=== PATIENT | male | born 1945 | race Caucasian/White ===

== ENCOUNTER 2021-02-02 18:32 | Inpatient (IN) ==
[2021-02-02] MEDS ORDERED: 0.9 % Sodium Chloride 500 ML IVC STA (20:00)
[2021-02-02 20:32] LABS: Basophils % 0.4 %; Eosinophils # 0.1 K/mcL (0.0-0.6); Hematocrit 36.3 % (37.5-50.1); Hemoglobin 11.3 g/dL (12.9-16.9); Immature Granulocytes % 0.5 % (0-4); Mean Corpuscular HGB Conc 31.1 g/dL (31.6-35.5); Mean Corpuscular Hemoglobin 28.5 pg (28.0-33.3); Mean Corpuscular Volume 91.7 fL (83.0-100.0); Mean Platelet Volume 10.4 fL (9.4-12.4); Monocytes # 0.6 K/mcL (0.0-1.3); Monocytes % 5.2 %; Platelet Count 147 K/mcL (140-400); Red Blood Count 3.96 M/mcL (4.19-5.50); Red Cell Distribution Width 13.7 % (11.5-14.5); Segmented Neutrophils % 83.9 %; White Blood Count 10.7 K/mcL (4.3-11.1)
[2021-02-02 20:53] LABS: Alanine Aminotransferase 10 Units/L (7-52); Albumin/Globulin Ratio 1.3 (1.1-2.2); Alkaline Phosphatase 74 Units/L (34-104); Aspartate Amino Transferase 16 Units/L (13-39); BUN/Creatinine Ratio 11 (6-26); Bilirubin,Total 0.4 mg/dL (0.3-1.0); Blood Urea Nitrogen 15 mg/dL (8-23); Calcium 8.4 mg/dL (8.6-10.3); Carbon Dioxide 26 mEq/L (23-29); Chloride 109 mEq/L (98-107); Creatine Kinase 146 Units/L (30-223); Glucose 96 mg/dL (70-105); Osmolality,Calculated 287 (280-300); Potassium 4.6 mEq/L (3.5-5.1); Sodium 138 mEq/L (136-145); eGFR For African Americans > 60 (> 60); eGFR For Non-African Americans 50 (> 60)
[2021-02-02 20:54] LABS: Troponin I < 0.03 ng/mL (< 0.04)
[2021-02-02 20:58] LABS: Acetaminophen < 10 mcg/mL (10-20); Chol/HDL Ratio 2.2 (0-4.9); Cholesterol 119 mg/dL (< 200); HDL Cholesterol 54 mg/dL (40-59); LDL Cholesterol,Calculated 57 mg/dL (< 100); Salicylate < 2.5 mg/dL (15.0-30.0); Triglycerides 39 mg/dL (< 150)
[2021-02-02] MEDS ORDERED: lamoTRIgine 100 MG TABLET PO SCH (21:00)
[2021-02-02 21:13] LABS: Ethanol < 10 mg/dL (Less than 10)
[2021-02-02 21:22] LABS: Bilirubin,Urine Negative (Negative); Blood,Urine Negative (Negative); Clarity,Urine Clear (Clear); Color,Urine Light-Yellow (Yellow); Glucose,Urine (UA) Normal (Normal); Ketones,Urine Negative (Negative); Leukocyte Esterase,Urine Negative (Negative); Nitrite,Urine Negative (Negative); Protein,Urine Trace mg/dL (Neg-Trace); Specific Gravity,Urine 1.016 (1.010-1.025); Urobilinogen,Urine Normal (Normal)
[2021-02-02 21:29] LABS: Amphetamine Screen,Urine Negative ng/mL (Cutoff=1000); Barbiturate Screen,Urine Negative ng/mL (Cutoff=200); Benzodiazepines Screen,Urine Negative ng/mL (Cutoff=200); Cannabinoid Screen,Urine Negative ng/mL (Cutoff = 50); Cocaine Screen,Urine Negative ng/mL (Cutoff= 300); Opiate Screen,Urine Negative ng/mL (Cutoff=300); Phencyclidine Screen,Urine Negative ng/mL (Cutoff=25)
[2021-02-02] MEDS ORDERED: Morphine Sulfate 2 MG/ML SYRINGE IVP STA (21:42)
[2021-02-02 22:43] LABS: Adenovirus Not Detected (Not Detect); Bordetella Pertussis Not Detected (Not Detect); Chlamydophila pneumoniae Not Detected (Not Detect); Coronavirus 229E Not Detected (Not Detect); Coronavirus HKU1 Not Detected (Not Detect); Coronavirus NL63 Not Detected (Not Detect); Coronavirus OC43 Not Detected (Not Detect); Human Metapneumovirus Not Detected (Not Detect); Human Rhinovirus/Enterovirus Not Detected (Not Detect); Influenza A Subtype 2009 H1 Not Detected (Not Detect); Influenza B Not Detected (Not Detect); Mycoplasma pneumoniae Not Detected (Not Detect); Parainfluenza Virus 1 Not Detected (Not Detect); Parainfluenza Virus 2 Not Detected (Not Detect); Parainfluenza Virus 3 Not Detected (Not Detect); Parainfluenza Virus 4 Not Detected (Not Detect); Respiratory Syncytial Virus Not Detected (Not Detect); SARS-CoV-2 Not Detected (Not Detect)
[2021-02-02 23:12] LABS: Estimated Average Glucose 117 mg/dl; Hemoglobin A1C 5.7 %
[2021-02-03] MEDS ORDERED: Ondansetron 4 MG/2 ML VIAL IVP PRN (01:19)
[2021-02-03] MEDS ORDERED: *HR* Promethazine 25 MG/ML VIAL IM PRN (01:19)
[2021-02-03] MEDS ORDERED: Naloxone 0.4 MG/ML INJ IVP PRN (01:19)
[2021-02-03] MEDS ORDERED: clonazePAM 0.5 MG TABLET PO PRN (01:23)
[2021-02-03] MEDS ORDERED: *HR* Labetalol 20 MG/4 ML SYRINGE IVP ONE (05:07)
[2021-02-03 05:56] LABS: BUN/Creatinine Ratio 11 (6-26); Blood Urea Nitrogen 14 mg/dL (8-23); Carbon Dioxide 24 mEq/L (23-29); Chloride 109 mEq/L (98-107); Glucose 98 mg/dL (70-105); Osmolality,Calculated 290 (280-300); Potassium 4.1 mEq/L (3.5-5.1); Sodium 140 mEq/L (136-145); eGFR For African Americans > 60 (> 60); eGFR For Non-African Americans 55 (> 60)
[2021-02-03] MEDS: Acetaminophen 325 MG TABLET PO PRN (07:21)
[2021-02-03] MEDS ORDERED: amLODIPine 5 MG TABLET PO SCH (09:00)
[2021-02-03] MEDS ORDERED: lamoTRIgine 100 MG TABLET PO SCH ×2 (09:00→21:00)
[2021-02-03] MEDS: lisinopriL 20 MG TABLET PO SCH ×2 (13:28→13:56)
[2021-02-03] MEDS: clonazePAM 0.5 MG TABLET PO SCH (20:47)
[2021-02-03] MEDS: Mirtazapine 15 MG TABLET PO SCH (20:47)
[2021-02-03] MEDS: lamoTRIgine 100 MG TABLET PO SCH (20:47)
[2021-02-04] MEDS: clonazePAM 0.5 MG TABLET PO SCH ×2 (07:45→19:51)
[2021-02-04] MEDS: lamoTRIgine 100 MG TABLET PO SCH ×2 (07:45→19:51)
[2021-02-04] MEDS ORDERED: lamoTRIgine 25 MG TABLET PO ONE (10:35)
[2021-02-04] MEDS: Acetaminophen 325 MG TABLET PO PRN ×2 (11:19→17:35)
[2021-02-04] MEDS: lisinopriL 20 MG TABLET PO SCH (19:50)
[2021-02-04] MEDS: OXcarbazepine 150 MG TABLET PO SCH (19:51)
[2021-02-04] MEDS: Mirtazapine 15 MG TABLET PO SCH (19:51)
[2021-02-04] MEDS ORDERED: lamoTRIgine 100 MG TABLET PO SCH (21:00)
[2021-02-04] MEDS ORDERED: lamoTRIgine 25 MG TABLET PO SCH (21:00)
[2021-02-05 07:38] LABS: Basophils % 0.4 %; Eosinophils # 0.4 K/mcL (0.0-0.6); Eosinophils % 6.4 %; Hematocrit 35.2 % (37.5-50.1); Immature Granulocytes % 0.4 % (0-4); Lymphocytes # 1.5 K/mcL (0.6-4.6); Lymphocytes % 27.3 %; Mean Corpuscular HGB Conc 31.3 g/dL (31.6-35.5); Mean Corpuscular Hemoglobin 28.8 pg (28.0-33.3); Mean Corpuscular Volume 92.1 fL (83.0-100.0); Mean Platelet Volume 10.7 fL (9.4-12.4); Monocytes # 0.5 K/mcL (0.0-1.3); Neutrophils # 3.1 K/mcL (1.6-8.9); Platelet Count 120 K/mcL (140-400); Red Blood Count 3.82 M/mcL (4.19-5.50); Red Cell Distribution Width 13.8 % (11.5-14.5); Segmented Neutrophils % 56.5 %; White Blood Count 5.5 K/mcL (4.3-11.1)
[2021-02-05 07:57] LABS: BUN/Creatinine Ratio 14 (6-26); Blood Urea Nitrogen 20 mg/dL (8-23); Calcium 8.9 mg/dL (8.6-10.3); Carbon Dioxide 27 mEq/L (23-29); Chloride 107 mEq/L (98-107); Glucose 90 mg/dL (70-105); Osmolality,Calculated 288 (280-300); Potassium 4.3 mEq/L (3.5-5.1); Sodium 138 mEq/L (136-145); eGFR For African Americans > 60 (> 60); eGFR For Non-African Americans 50 (> 60)
[2021-02-05] MEDS: OXcarbazepine 150 MG TABLET PO SCH ×2 (09:28→20:48)
[2021-02-05] MEDS: clonazePAM 0.5 MG TABLET PO SCH ×2 (09:28→20:48)
[2021-02-05] MEDS: lamoTRIgine 100 MG TABLET PO SCH ×2 (09:28→20:48)
[2021-02-05] MEDS: lisinopriL 20 MG TABLET PO SCH (20:48)
[2021-02-05] MEDS: Mirtazapine 15 MG TABLET PO SCH (20:49)
[2021-02-05] MEDS ORDERED: *HR* Labetalol 20 MG/4 ML SYRINGE IVP ONE (22:52)
[2021-02-06 03:24] LABS: Calcium 9.2 mg/dL (8.6-10.3); Potassium 4.4 mEq/L (3.5-5.1)
[2021-02-06] MEDS: lamoTRIgine 100 MG TABLET PO SCH ×2 (10:17→20:38)
[2021-02-06] MEDS: OXcarbazepine 150 MG TABLET PO SCH ×2 (10:17→20:39)
[2021-02-06] MEDS: clonazePAM 0.5 MG TABLET PO SCH ×2 (10:17→20:38)
[2021-02-06] MEDS: lisinopriL 20 MG TABLET PO SCH (20:38)
[2021-02-06] MEDS: Mirtazapine 15 MG TABLET PO SCH (20:39)
[2021-02-06 23:32] LABS: Bilirubin,Urine Negative (Negative); Blood,Urine Negative (Negative); Clarity,Urine Clear (Clear); Color,Urine Colorless (Yellow); Glucose,Urine (UA) Normal (Normal); Ketones,Urine Negative (Negative); Leukocyte Esterase,Urine Negative (Negative); Nitrite,Urine Negative (Negative); Protein,Urine Negative (Neg-Trace); Specific Gravity,Urine 1.012 (1.010-1.025); Urobilinogen,Urine Normal (Normal)
[2021-02-07 03:35] LABS: Calcium 9.1 mg/dL (8.6-10.3); Potassium 4.8 mEq/L (3.5-5.1)
[2021-02-07 03:51] VITALS: BP 132/67
[2021-02-07] MEDS: OXcarbazepine 150 MG TABLET PO SCH (08:22)
[2021-02-07] MEDS: lamoTRIgine 100 MG TABLET PO SCH (08:22)
[2021-02-07] MEDS: clonazePAM 0.5 MG TABLET PO SCH (08:22)
== END 2021-02-07 16:51 | DRG 101 ==
LOC: EMEROOARM 18:32 → 2ANU 18:32 → SUATTDRO 02-03 03:19 → 2ANU 02-03 03:58 → SUATTDRO 02-04 11:30
PROVIDERS: ADMIT Family Medicine; ATTEND Internal Medicine